=== PATIENT | female | born 1940 | race Caucasian/White ===

== ENCOUNTER 2016-06-25 11:39 | Observation (INO) | payer OTHER ==
[~2016-06-25] VITALS: Ht 160 cm; Wt 75.7 kg
[~2016-06-25 11:39] MED LIST: ATEN25TA PO; CALC1TAB30 PO; CHOL100025 CHEW; FISH1000 PO; LACTATED RINGER'S 1000 ML INJ 1,000 ML IV ONE; LIDOCAINE 1%/EPINEPHrine 1:100,000 SOLN 30 ML VIAL ONE; LISI-515 PO; MAGN1TAB14 PO; ONDANSETRON HCL 4 MG/2 ML VIAL IV PUSH ONE; PRAV20TA2 PO; PROPOFOL 200 MG/20 ML AMP IV ONE; TRAM50TA PO; ePHEDrine/NS 25 MG/5 ML SYR IV ONE
[2016-06-25] MEDS ORDERED: INSULIN HUMAN REGULAR 1,000 UNITS/10 ML VIAL SQ PRN (12:30)
[2016-06-25] MEDS ORDERED: LACTATED RINGER'S 1000 ML IV SCH (12:30)
[2016-06-25] MEDS ORDERED: METOPROLOL TARTRATE 25 MG TAB PO PRN (12:30)
[2016-06-25] MEDS: SODIUM CHLORID 0.9% 500 ML IV SCH (12:30)
[2016-06-25 12:43] VITALS: BP 176/58; PULSE 64; RESP 18; TEMP 98; O2SAT 98
[2016-06-25] MEDS ORDERED: VANCOMYCIN HCL 1000 MG VIAL ONE (13:01)
[2016-06-25] MEDS ORDERED: MICROFIBRILLAR COLLAGEN HEMOSTAT 70 X 35 MM BANDAGE ONE (13:01)
[2016-06-25] MEDS ORDERED: THROMBIN (TOPICAL) 5,000 UNIT VIAL ONE (13:02)
[2016-06-25] MEDS ORDERED: GENTAMICIN SULFATE 80 MG/2 ML VIAL ONE (13:02)
[2016-06-25] MEDS ORDERED: SODIUM CHLOR 0.9% 250 ML INJ 250 ML ONE (13:02)
[2016-06-25] MEDS ORDERED: GELFOAM SIZE 100 ONE (13:02)
[2016-06-25] MEDS ORDERED: ceFAZolin 2 GM PREMIX 50 ML ONE (13:02)
[2016-06-25 13:09] LABS: APTT (PATIENT) 25.1 SEC (24.3-30.1); PROTHROMBIN TIME - PATIENT 11.5 SEC (9.8-11.6)
[2016-06-25] MEDS ORDERED: MIDAZOLAM HCL 2 MG/2 ML VIAL ONE (14:17)
[2016-06-25] MEDS ORDERED: ARTIFICIAL TEARS OPTH OINT 3.5 APPLIC/3.5 GM TUBO ONE (14:17)
[2016-06-25] MEDS ORDERED: fentaNYL CITRATE 250 MCG/5 ML AMP ONE (14:17)
[2016-06-25] MEDS ORDERED: ACETAMINOPHEN 1000 MG/100 ML VIAL IV ONE (14:17)
[2016-06-25] MEDS ORDERED: SODIUM CHLORIDE 0.9% FLUSH 5 ML FLUSH IVF PRN ×2 (16:30→17:30)
[2016-06-25] MEDS ORDERED: MENTHOL LOZENGE SUCK-ON PRN ×2 (16:30→17:30)
[2016-06-25] MEDS ORDERED: PANTOPRAZOLE SOD 40 MG DELAYED RELEASE TAB PO SCH (16:30)
[2016-06-25] MEDS ORDERED: CYCLOBENZAPRINE HCL 10 MG TAB PO PRN ×2 (16:30→17:30)
[2016-06-25] MEDS ORDERED: ACETAMINOPHEN 325 MG TAB PO PRN ×2 (16:30→17:30)
[2016-06-25] MEDS ORDERED: MORPHINE SULFATE 4 MG/ML INJ IV PUSH PRN ×4 (16:30→17:30)
[2016-06-25] MEDS ORDERED: BISACODYL 10 MG SUPP PR PRN ×2 (16:30→17:30)
[2016-06-25] MEDS ORDERED: ACETAMINOPHEN/HYDROcodone 325 MG/10 MG TAB PO PRN ×3 (16:30→17:30)
[2016-06-25] MEDS ORDERED: ONDANSETRON HCL 4 MG/2 ML VIAL IV PRN ×2 (16:30→17:30)
[2016-06-25] MEDS ORDERED: NS + KCL 20 MEQ INJ 1,000 ML IV SCH (17:00)
--- NOTE | 2016-06-25 17:28 | PD.OP ---
Operative Report Date of Surgery: Jun 25, 2016 Preoperative Diagnosis: Cervical spinal stenosis Postoperative Diagnosis: Cervical spinal stenosis Procedure: C4-5, C5-6 anterior cervical discectomy, interbody arthodhesis using PEEK cage filled with autologous bone graft, Simplicity plate and screws. Anesthesia: general Surgeon: Contreras Costa Manager Integrity(s): judy quintero Operation and Findings: INDICATIONS FOR THE PROCEDURE Ms Howe is a 76 year-old female who presented with intractable neck pain and clinical evidence of C5 and C6 upper extremity radiculopathy. She was found to have significant spondylosis with stenosis. She has failed maximum nonsurgical management including multiple modalities of conservative treatment as well as pain management interventions by an interventional pain specialist. A surgical decompression and arthrodhesis were indicated. The [id number] details of the procedure, indications, alternatives, risks and potential complications were fully discussed with the patient. The patient fully understood. All The questions were answered. No guarantees were given. The patient voiced requesting the procedure and provided informed consents. The patient was offered the alternative of delaying the procedure and continuing with nonsurgical management. DETAILS OF THE SURGICAL PROCEDURE After the induction of general anesthesia, endotracheal intubation was performed. A Pisano catheter, bilateral DOROTHEA hose, and sequential compression devices were placed and kept throughout the procedure. Placement of electrodes for neurophysiological monitoring of the somatosensorial evoked potentials. motor evoked potentials, and EMG as well as laryngeal nerve monitoring was achieved. The patient was positioned supine on a Wu table with the head over a gel doughnut. All pressure points were carefully padded with eggcrate mattress. The eyes were tapped shut after ointment was applied by the anesthesiologist to prevent corneal abrasion. A Angie hugger was placed over the exposed lower body to maintain control of the core body temperature. The electrophysiological team placed the needles and electrodes in their proper location and baseline SSEP's and motor evoked potentials were registered prior and after positioning and endotracheal intubation. The anterior cervical region was prepped and draped in the usual sterile fashion. A localizing x-ray was performed with a C-arm. The surgical procedure was performed in several steps as follow: SURGICAL APPROACH A skin incision was made along the medial cervical crease with a #10 blade. The dissection was carried out through the platysma exposing the sternocleidomastoid muscle. The cervical spine was approached following the fascial layers of the neck just medial to the anterior border of the sternocleidomastoid and carotid sheath by a combination of sharp and dull dissection. The omohyoid muscle was identified and carefully dissected laterally and the deep cervical fascia was carefully opened. The longus colli muscles were retracted to each side of the midline. A marker was placed at the disc space C5-6 and a cross-table lateral x-ray performed with a C-arm. SURGICAL DECOMPRESSION In order to decompress the anterior surface of the spinal cord it was necessary to preform a microsurgical resection of the disk at C4-5 and C5-6. At this point in the procedure the operating microscope was draped in the usual sterile fashion and brought to the field. The rest of the surgical procedure was performed using microdissection technique with the exception of the closure. Under the operative microscopic, a self-retaining retractor was placed underneath the longus colli muscle. Anterior osteophite spurs werte carefully removed with the Leksell. The annulus at C4-5 and C5-6 were incised with a #15 blade and microdiscectomy was then carefully carried out using angled curets and pituitary forceps. There were osteophitic/disk complexes mass effect and compression of the dural sac and nerve roots. The posterior longitudinal ligament was then elevated with an angled curet and incised with a 15 bladed knife. A careful resection of the posterior longitudinal ligament was carried out using a thin footplate 2 mm Kerrison. A nerve hook was used to assess the epidural space behing the vertebral bodies C5 and C6 in search for residual disk fragments. The margins of the posterior endplates at C4-5 and C5-6 were carefully drilled and undercut with a TPS drill under high magnification. The decompression was then carried out laterally, and a bilateral foraminotomy was performed with a 2mm thin foot Kerrison. Then the vertebral bodies above and below the disk space were undercut using a 2 mm thin foot Kerrison. The epidural space was the systematically assessed with a nerve hook in search for disk fragments or scar tissue. An excellent decompression was achieved in both , the dural sac and bilateral exiting nerve roots. The incision was then irrigated with a large amount of antibiotic solution INTERBODY ARTHRODHESIS In order to avoid collapse of the disk space which would result in bilateral foraminal stenosis, and to increase the chances of a successful fusion, it was necessary to place an interbody cage filled with autologous bone. At this point of the procedure, the superior and inferior endplates were then evenly decorticated with a TPS drill. The use of a drill in combination with a curette allowed me to systematically remove the cartilaginous endplates, exposing healthy bone for the interbody arthrodesis. Fourteen millimeters distraction pins were then placed at the vertebral bodies adjacent to the disk space, and gentle distraction was applied. The size of the interbody cage was then assessed using different size spacers, and a rasp was used to ensure no residual cartilage. A PEEK cage of the appropriate size was selected, and the interbody arthrodesis was then preformed by carefully impacting a PEEK cage filled with autologous bone graft to the disc spaces C4-5 and C5-6. An excellent position of the cage was achieved. This was was confirmed anatomically by feeling the space posterior to the implant and distance to the anterior surface of the dural sac. Radiological confirmation of the position was performed with a cross lateral xray performed with the C-arm. INTERNAL INSTRUMENTAL FIXATION Once that the interbody device was in an appropriate position, it was necessary to stabilize the spine with anterior instrumentation. Anterior instrumentation has demonstrated to increase the rate of fusion, acelerate the patient's recovery, and decrease the rate of failed interbody grafts. At this point of the procedure, the distance between the vertebral bodies was carefully measures, and a Simplicity plate was brought to the field and presented in front of the vertebral bodies C4 C5 and C6. Electrical Software Engineer holes were then drilled using the TPS drill, and the plate was then secured to the spine using self-drilling, self-tapping screws. Initially, the inferior right screw was inserted, followed by placement of the contralateral upper screw. The remanding screws were sequentially placed in a contra-lateral fashion. A proper purchase was achieved with all screws and the position of the cage, plate and screws, and alignment of the spine was assessed anatomically by direct visualization, and radiologically by performing a cross lateral xray of the cervical spine with the C-arm. CLOSURE The incision was irrigated with several liters of antibiotic solution. Hemostasis was achieved with a bipolar. The screws were locked to prevent backing out. A 7 mm Wu-Trimble drain was left in the prevertebral space and externalized through a separate stab incision. The incision was then closed in layers. 3-0 Vicryl with interrupted sutures was used to close the platysma and subcutaneous tissue. The skin was closed with 4-0 running subcuticular Vicryl and glue was applied to the skin. The drain was secured with a 3-0 nylon. At the end of the procedure the sponge, needle and instrument counts were all correct. The estimated blood loss was less than 50 cc. No blood transfusion was given. No intraoperative complications occurred. The patient received prophylactic antibiotics. The patient was then extubated and transferred to the recovery room in stable condition. Contreras Costa MD Jun 25, 2016 17:28
[2016-06-25] MEDS ORDERED: traMADol HCL 50 MG TAB PO PRN (17:30)
[2016-06-25] MEDS ORDERED: DO NOT ADM ANY ANTICOAGULANT DRUGS XX PRN (17:50)
[2016-06-25] MEDS ORDERED: DEXAMETHASONE SOD PHOS 4 MG/ML VIAL IV SCH ×2 (18:00)
[2016-06-25] MEDS ORDERED: *morphine SULFATE 8 MG/ML PERIprocedure ONLY ONE (18:11)
--- NOTE | 2016-06-25 18:13 | RADRPT ---
EXAM DATE/TIME: 06/25/2016 14:49 [facility] COMPARISON: No previous studies available for comparison. INDICATIONS : Fusion C4,C5 and C5,C6 with screws and plate placement. MEDICAL HISTORY : None. SURGICAL HISTORY : None. ENCOUNTER: Initial ACUITY: 1 day PAIN SCORE: Non-responsive. LOCATION: Cervical spine. FINDINGS: Anterior and lateral views in the operating room show discectomy and fusion procedure with interbody and anterior instrumentation at C4/C5 and C5/C6. Alignment is normal. No acute complication demonstra sarabjit. CONCLUSION: Expected radiographic appearance discectomy and fusion procedure with interbody and anterior instrume ntation at C4/C5 and C5/C6. Pravin Gardner MD on June 25, 2016 at 18:11 Board Certified Radiologist. This report was verified electronically.
[2016-06-25] MEDS ORDERED: HYDR-3583 PO (18:16)
[2016-06-25] MEDS: NS + KCL 20 MEQ INJ 1,000 ML IV SCH (18:21)
[2016-06-25 20:31] VITALS: BP 133/63; PULSE 84; RESP 19; TEMP 97.1; O2SAT 98
[2016-06-25] MEDS ORDERED: DOCUSATE SODIUM 100 MG CAP PO SCH (21:00)
[2016-06-25] MEDS ORDERED: SODIUM CHLORIDE 0.9% FLUSH 5 ML FLUSH IVF SCH (21:00)
[2016-06-25] MEDS ORDERED: PRAVASTATIN SOD 20 MG TAB PO SCH (21:00)
[2016-06-25] MEDS: SODIUM CHLORIDE 0.9% FLUSH 5 ML FLUSH IVF SCH (22:07)
[2016-06-25] MEDS: DOCUSATE SODIUM 100 MG CAP PO SCH (22:07)
[2016-06-25] MEDS: DEXAMETHASONE SOD PHOS 4 MG/ML VIAL IV SCH (22:08)
[2016-06-25] MEDS ORDERED: ceFAZolin 2 GM PREMIX 50 ML IV SCH (23:00)
[2016-06-25] MEDS: ceFAZolin 2 GM PREMIX 50 ML IV SCH (23:00)
[2016-06-26 00:02] VITALS: BP 162/70; PULSE 86; RESP 20; TEMP 97.6; O2SAT 97
[2016-06-26] MEDS: NS + KCL 20 MEQ INJ 1,000 ML IV SCH ×3 (00:49→06:22)
[2016-06-26] MEDS: DEXAMETHASONE SOD PHOS 4 MG/ML VIAL IV SCH ×3 (02:14→12:28)
[2016-06-26] MEDS: ACETAMINOPHEN/HYDROcodone 325 MG/10 MG TAB PO PRN ×3 (02:15→12:23)
[2016-06-26 04:01] VITALS: BP 132/60; PULSE 76; RESP 20; TEMP 96.9; O2SAT 98
[2016-06-26] MEDS: SODIUM CHLORID 0.9% 500 ML IV SCH (05:10)
[2016-06-26] MEDS: ceFAZolin 2 GM PREMIX 50 ML IV SCH (06:22)
[2016-06-26 08:00] VITALS: BP 185/72; PULSE 82; RESP 20; TEMP 97.2; O2SAT 96
[2016-06-26] MEDS: DOCUSATE SODIUM 100 MG CAP PO SCH (08:12)
[2016-06-26] MEDS: SODIUM CHLORIDE 0.9% FLUSH 5 ML FLUSH IVF SCH (08:13)
[2016-06-26] MEDS ORDERED: ATENOLOL 25 MG TAB PO SCH (09:00)
[2016-06-26] MEDS ORDERED: LISINOPRIL 20 MG TAB PO SCH (09:00)
[2016-06-26] MEDS ORDERED: NON-FORMULARY DRUG (Calcium Carbonate-Cholecalciferol (Calcium 600 + D) 1 TAB) PO SCH (09:00)
[2016-06-26] MEDS ORDERED: PANTOPRAZOLE SOD 40 MG DELAYED RELEASE TAB PO SCH (09:00)
[2016-06-26] MEDS ORDERED: MAGNESIUM OXIDE 400 MG TAB PO SCH (09:00)
[2016-06-26] MEDS ORDERED: NON-FORMULARY DRUG (Omega-3 Fatty Acids (Fish Oil) 1,000 MG) PO SCH (09:00)
[2016-06-26] MEDS ORDERED: MAGNESIUM 400 MG PO SCH (09:00)
[2016-06-26] MEDS ORDERED: CALCIUM/VITAMIN D 250 MG/125 U TAB PO SCH (09:00)
--- NOTE | 2016-06-26 10:09 | HHI.DCPOC ---
Discharge Care Plan Diagnosis: (1) Status post cervical arthrodesis Goals to Promote Your Health * To prevent worsening of your condition and complications * To maintain your health at the optimal level Directions to Meet Your Goals Take your medications as prescribed Follow your dietary instruction Follow activity as directed Keep your appointments as scheduled Take your immunizations and boosters as scheduled If your symptoms worsen call your PCP, if no PCP go to Urgent Care Center or Emergency Room Smoking is Dangerous to Your Health. Avoid second hand smoke Call the 24-hour hour crisis hotline for domestic abuse at Supriya Gomez Jun 26, 2016 10:09
--- NOTE | 2016-06-26 10:12 | HHI.DS ---
Discharge Summary Admission Date Jun 25, 2016 at 16:19 Discharge Date: Jun 26, 2016 Admitting Diagnosis s/p ACDF (1) Status post cervical arthrodesis ICD Code: Z98.1 Brief History Ms Howe is a 76 year-old female who presented with intractable neck pain and clinical evidence of C5 and C6 upper extremity radiculopathy. She was found to have significant spondylosis with stenosis. She has failed maximum nonsurgical management including multiple modalities of conservative treatment as well as pain management interventions by an interventional pain specialist. A surgical decompression and arthrodesis were indicated. Imaging Last Impressions Cervical Spine X-Ray 06/25/16 0000 Signed Impressions: Service Date/Time: Saturday, June 25, 2016 14:49 - CONCLUSION: Expected radiographic appearance discectomy and fusion procedure with interbody and anterior instrumentation at C4/C5 and C5/C6. Pravin Gardner MD PE at Discharge Ms. Howe is alert, in no apparent distress. Speech is fluent. Mentation intact. Incision is clean and dry, dressing in place. Cranial nerve examination: pupils to be equal, round and reactive to light. Extra-ocular movements are intact. Facial motor are normal and symmetrical. Gross hearing appears intact. Neck is immobilized by a Cassia J collar. Muscle strength is 5/5 to both deltoid, biceps, triceps, and rubber cutter in the upper extremities. 5/5 to both iliopsoas, quadriceps, hamstrings, plantarflexion and dorsiflexion in lower extremities. Sensory examination is intact to light touch in both the upper and lower extremities. Hospital Course Ms. Howe underwent a C4-5, C5-6 anterior cervical discectomy, interbody arthrodesis using PEEK cage filled with autologous bone graft, Simplicity plate and screws on Jun 25, 2016. Her surgery went well without complications. She reports her preop symptoms are improving. Her surgical pain is controlled. She denies chest pain, difficulty breathing, shortness of breath. Wound care and activity restrictions as well as signs and symptoms to watch for were discussed. Her MARTIN drain removed. She had episode of hypertension without reports of chest pain, difficulty breathing, or mental status changes, bp improved following clonidine and she was discharged home with recommendations to follow up with her PCP for hypertension. Pt Condition on Discharge: Stable Discharge Disposition: Discharge Home Discharge Instructions DIET: Follow Instructions for: Soft Diet ADDITIONAL Diet Instructions: advance as tolerated ACTIVITIES You can perform: Weight Bearing As Kofi ADDITIONAL Activity Instructio: Avoid strenuous activities, heavy lifting, overhead activities, repetitive bending, twisting, pushing, pulling or any activities which might result in stress over the spine. Avoid situtation that will put at risk for falls. Use assistive device as needed for walking. Wear cervical collar at all times, may remove only with meals. Follow up Referrals: PCP Follow-up - 2-3 Days New Medications: Hydrocodone-Acetaminophen (Hydrocodone-Acetaminophen) 10-325 mg Tab 1 TAB PO Q8HR PRN PAIN SCALE 1 TO 10 #90 Ref 0 TAB Continued Medications: Atenolol (Atenolol) 25 Mg Tab 10 MG PO DAILY Blood Pressure Management #30 Ref 0 TAB Calcium Carbonate-Cholecalciferol (Calcium 600 + D) 600-200 Mg-Unit Tab 1 TAB PO DAILY TAB Lisinopril (Lisinopril) 20 Mg Tab 20 MG PO DAILY #30 Ref 0 TAB Magnesium (Magnesium) 400 Mg Tab 400 MG PO DAILY Nutritional Supplement Ref 0 TAB United-3 Fatty Acids (Fish Oil) 1,000 Mg Cap 1000 MG PO DAILY Pravastatin (Pravastatin) 20 Mg Tab 20 MG PO HS Cholesterol Management #30 Ref 0 TAB Tramadol (Tramadol) 50 Mg Tab 50 MG PO Q4H PRN PAIN Ref 0 TAB Supriya Gomez Jun 26, 2016 10:12
[2016-06-26 11:51] VITALS: BP 190/74; PULSE 84; RESP 20; TEMP 97.4; O2SAT 96
[2016-06-26] MEDS ORDERED: cloNIDine HCL 0.1 MG TAB PO/NG PRN (12:15)
[2016-06-26 14:00] VITALS: BP 166/70
[2016-06-26 14:35] VITALS: BP 152/64; PULSE 78; RESP 20; TEMP 97.4; O2SAT 98
--- NOTE | 2016-06-26 22:34 | EKG ---
Date Performed: 06/25/2016 Time Performed: 13:23:05 PTAGE: 76 years EKG: Sinus rhythm WITH MARKED SINUS ARRHYTHMIA PACS BORDERLINE ECG NO PREVIOUS TRACING DOCTOR: Kate Banda Interpretating Date/Time 06/26/2016 22:32:27
[2016-07-16] MEDS ORDERED: NEUR100C PO (11:38)
[2016-09-05] MEDS ORDERED: NEUR100C PO (12:29)
== END 2016-06-26 15:49 | disposition home health service (06) ==
LOC: HSDC 11:39 → HSDI 16:19 → N06A 18:48
PROVIDERS: ADMIT Neurological Surgery; ATTEND Neurological Surgery
DX: M48.02 Spinal stenosis, cervical region (principal); M50.021 Cervical disc disorder at C4-C5 level with myelopathy; M50.022 Cervical disc disorder at C5-C6 level with myelopathy; M47.9 Spondylosis, unspecified; M54.12 Radiculopathy, cervical region; I49.9 Cardiac arrhythmia, unspecified
CPT/HCPCS: 00600; 20936; 22551; 22552; 22845; 22854; 72040; 76000; 85610; 85730; 93005; 94150; 97162; C1713; G0378; G8987; G8988; J0131; J0690; J1100; J1580; J2250; J2270; J2405; J3010; J3370; J3480; J7050; J7120; L0150; L0172

== ENCOUNTER → 2017-02-24 | Outpatient (CLI) | payer OTHER ==
[~2017-02-24] MED LIST changes: +CALC1TAB87 PO; -CHOL100025 CHEW; +HYDR-3583 PO; -LACTATED RINGER'S 1000 ML INJ 1,000 ML IV ONE; -LIDOCAINE 1%/EPINEPHrine 1:100,000 SOLN 30 ML VIAL ONE; -MAGN1TAB14 PO; +MAGN400T3 PO; +MAPA500T PO; +NEUR100C PO; -ONDANSETRON HCL 4 MG/2 ML VIAL IV PUSH ONE; -PROPOFOL 200 MG/20 ML AMP IV ONE; +WALKER/ADULT/FO1 MIS; +XARE10TA PO; -ePHEDrine/NS 25 MG/5 ML SYR IV ONE
== END ==
LOC: CPRE 08:37
PROVIDERS: ATTEND Orthopaedic Surgery Orthopaedic Trauma
DX: Z00.00 Encounter for general adult medical examination without abnormal findings (principal)

== ENCOUNTER 2017-03-06 05:12 | Inpatient (IN) | payer OTHER, MEDICARE ==
[~2017-03-06] VITALS: Ht 160 cm; Wt 78.4 kg
[~2017-03-06 05:12] MED LIST changes: -CALC1TAB30 PO; -HYDR-3583 PO; +MAGN1TAB14 PO; -MAGN400T3 PO; -NEUR100C PO; -TRAM50TA PO; -WALKER/ADULT/FO1 MIS; -XARE10TA PO
[2017-03-06] MEDS ORDERED: CHLORHEXIDINE GLUCONATE 4% SOLN 120 ML BTL TOPICAL SCH (05:45)
[2017-03-06] MEDS ORDERED: ceFAZolin 2 GM PREMIX 50 ML IV SCH (05:45)
[2017-03-06] MEDS ORDERED: INSULIN HUMAN REGULAR 1,000 UNITS/10 ML VIAL SQ PRN (06:00)
[2017-03-06] MEDS ORDERED: LACTATED RINGER'S 1000 ML IV PRN (06:00)
[2017-03-06] MEDS ORDERED: METOPROLOL TARTRATE 25 MG TAB PO PRN (06:00)
[2017-03-06] MEDS ORDERED: POVIDONE IODINE 5% (ANTISEPSIS KIT) 4 APPLICATIONS EACH NARE PRN (06:00)
[2017-03-06] MEDS ORDERED: CHLORHEXIDINE GLUCONATE 2 % 1 PACK (2 CLOTHS) TOPICAL PRN (06:00)
[2017-03-06] MEDS ORDERED: SODIUM CHLORID 0.9% 500 ML IV PRN (06:00)
[2017-03-06] MEDS: VANCOMYCIN 1000 MG/NS 250 ML (for <70 kg) IV SCH ×4 (06:20→08:08)
[2017-03-06] MEDS ORDERED: ATEN25TA PO (06:24)
[2017-03-06] MEDS ORDERED: GENTAMICIN SULFATE 80 MG/2 ML VIAL ONE (07:02)
[2017-03-06] MEDS ORDERED: TRANEXAMIC ACID IV SCH (07:30)
[2017-03-06] MEDS ORDERED: EXPAREL PERI-ARTICULAR INJECTION (TOTAL VOL. 60 ML) P-ARTICULR SCH ×2 (07:30)
[2017-03-06] MEDS ORDERED: SODIUM CHLORIDE 0.9% IV SCH (07:30)
[2017-03-06] MEDS ORDERED: HYDROmorphone HCL PF 2 MG/ML VIAL ONE (08:23)
[2017-03-06] MEDS ORDERED: HYDR-3583 PO (09:22)
[2017-03-06] MEDS ORDERED: WALKER/ADULT/FO1 MIS (09:22)
[2017-03-06] MEDS ORDERED: XARE10TA PO (09:22)
--- NOTE | 2017-03-06 09:23 | HHI.FF ---
Face to Face Verification Diagnosis: (1) S/P total hip arthroplasty Physical Therapy Gait training Hip: Total hip, Protocol: Left, Progress to weight bearing Nursing Dressing Changes: Daily dressing change, Coverderm/Primapore (begin adding xeroform on POD 10) I have seen patient Iveth Howe on 03/06/17. My clinical findings support the need for the requested home health care services because: Ltd mobility - disease progression I certify that my clinical findings support that this patient is homebound because: Post-op weakness Leoncio Peterson Mar 06, 2017 09:23
--- NOTE | 2017-03-06 09:23 | PD.OP ---
cc: Gabino Conn MD Operative Report Date of Surgery: Mar 06, 2017 Preoperative Diagnosis: Severe left hip osteoarthritis Postoperative Diagnosis: Procedure: Left total hip arthroplasty via anterior approach Anesthesia: Gen. Surgeon: Gabino Conn Railroad Car Cleaner(s): JORDYN Richter PA-C The surgical procedure was assisted by my physician patient clerical assistant. My P.A. presence was necessary throughout this case for the manipulation and positioning of the surgical extremity. My P.A. was assisting me throughout the duration of this procedure. The skill set of a physician patient clerical assistant was medically necessary to complete this procedure. During the surgical case the surgical endoscopist was working at the back table and the physician patient clerical assistant was directly assisting me. Operation and Findings: PLAN OF ACTIVITY Weight bear as tolerated. DRAINS: 7-mm MARTIN drain. IMPLANTS USED DePuy Corail size 12 collared stem with a size 50 [place] Gription cup, 50/32 Altrx poly liner, and a [+1] metal head. DETAILS OF PROCEDURE: This patient has a long history of hip pain. Patient was found to have severe osteoarthritis. The patient had radiographic evidence of joint space narrowing with [id number] arthritis and osteophytes around the acetabulum as well as the femoral head. There was also some cystic changes. The patient failed conservative treatment with pain medications, anti-inflammatories, physical therapy, assistive devices including a cane, as well as therapeutic injection of the hip. Patient's hip arthritis was limiting his ability to ambulate and perform activities of daily living. The patient wished to proceed with surgery and informed consent was obtained. Operative site was marked. I discussed both posterior approach and anterior approach with the patient and decision was made for anterior approach. Patient was brought to OR and placed on OR table. IV sedation and general anesthesia was administered by anesthesiologist. Patient positioned on a Tyra table and was given IV antibiotics. Time-out procedure was performed. The hip and thigh were prepped with alcohol followed by Hibiclens. The thigh was draped in the usual sterile fashion. Clean Air Suite was used for this procedure. The procedure began with a 5-inch incision over the anterolateral thigh. Subcutaneous tissue was dissected with Bovie. The fascia over the tensa fasciae latae was incised. Care was taken to avoid injury to the lateral femoral cutaneous nerve. The tensor muscle was retracted laterally. Sartorius was retracted medially. Retractors were now placed. The reflected head of the rectus is now elevated. A capsulotomy was performed over the anterior head capsule. Sutures were placed to help retract the capsule. At this point the femoral head and neck were identified. With soft tissue protected, oscillating saw was used to make a cut through the femoral neck, the femoral head was now removed. At this point attention was turned to preparation of the acetabulum. The labrum was excised. The acetabulum was sequentially reamed up to size [50]. A [place] cup was now placed. Fluoroscopy was used to aid in identification of appropriate version. Cup was fully impacted and found to have excellent fit. Hole eliminator was now placed. The liner was now impacted into the cup. At this point the hip was externally rotated. A hook was placed around the proximal femur. The capsule was released off the lateral and medial femur. The hip was now extended and adducted. Retractors were placed around the proximal femur to allow for exposure. A box osteotome was used to remove the lateral cortex of the femoral neck. A broach was used to help lateralize the prosthesis. Canal finder was used to create a path down the canal. Next, the canal was sequentially broached up to size [12]. This was found to be an excellent fit. Calcar planer was placed. A standard head was placed, and the hip was reduced. The hip was found to have excellent stability with good range of motion. The leg lengths were measured under fluoroscopy and found to be equal compared to preoperatively. Trial broach was removed. The Corail stem was opened. Stem was fully impacted into the proximal femur in appropriate version. The femoral head was placed. The hip was again reduced. Fluoroscopy confirmed excellent alignment of prosthesis. The wound was thoroughly irrigated and capsule was closed with #1 Vicryl. The fascia over the tensor fasciae muscle was closed with #1 Vicryl, subcutaneous tissue was closed with 3-0 Vicryl and the skin was closed with shaan and Dermabond skin closure. The capsule layers, muscle, and subcutaneous tissue were injected with a mixture of saline and bupivicaine. Dressings were applied. The patient was transferred to Recovery Room in stable condition. Gabino Conn MD Mar 06, 2017 09:23
--- NOTE | 2017-03-06 09:23 | PD.OP ---
cc: Gabino Conn MD Operative Report Date of Surgery: Mar 06, 2017 Preoperative Diagnosis: Severe left hip osteoarthritis Postoperative Diagnosis: Procedure: Left total hip arthroplasty via anterior approach Anesthesia: Gen. Surgeon: Gabino Conn Operations And Maintenance Technican(s): JORDYN Richter PA-C The surgical procedure was assisted by my physician therapeutic assistant. My P.A. presence was necessary throughout this case for the manipulation and positioning of the surgical extremity. My P.A. was assisting me throughout the duration of this procedure. The skill set of a physician therapeutic assistant was medically necessary to complete this procedure. During the surgical case the surgical pathologist was working at the back table and the physician therapeutic assistant was directly assisting me. Operation and Findings: PLAN OF ACTIVITY Weight bear as tolerated. DRAINS: 7-mm MARTIN drain. IMPLANTS USED DePuy Corail size 12 collared stem with a size 50 [place] Gription cup, 50/32 Altrx poly liner, and a [+1] metal head. DETAILS OF PROCEDURE: This patient has a long history of hip pain. Patient was found to have severe osteoarthritis. The patient had radiographic evidence of joint space narrowing with [id number] arthritis and osteophytes around the acetabulum as well as the femoral head. There was also some cystic changes. The patient failed conservative treatment with pain medications, anti-inflammatories, physical therapy, assistive devices including a cane, as well as therapeutic injection of the hip. Patient's hip arthritis was limiting his ability to ambulate and perform activities of daily living. The patient wished to proceed with surgery and informed consent was obtained. Operative site was marked. I discussed both posterior approach and anterior approach with the patient and decision was made for anterior approach. Patient was brought to OR and placed on OR table. IV sedation and general anesthesia was administered by anesthesiologist. Patient positioned on a Tyra table and was given IV antibiotics. Time-out procedure was performed. The hip and thigh were prepped with alcohol followed by Hibiclens. The thigh was draped in the usual sterile fashion. Clean Air Suite was used for this procedure. The procedure began with a 5-inch incision over the anterolateral thigh. Subcutaneous tissue was dissected with Bovie. The fascia over the tensa fasciae latae was incised. Care was taken to avoid injury to the lateral femoral cutaneous nerve. The tensor muscle was retracted laterally. Sartorius was retracted medially. Retractors were now placed. The reflected head of the rectus is now elevated. A capsulotomy was performed over the anterior head capsule. Sutures were placed to help retract the capsule. At this point the femoral head and neck were identified. With soft tissue protected, oscillating saw was used to make a cut through the femoral neck, the femoral head was now removed. At this point attention was turned to preparation of the acetabulum. The labrum was excised. The acetabulum was sequentially reamed up to size [50]. A [place] cup was now placed. Fluoroscopy was used to aid in identification of appropriate version. Cup was fully impacted and found to have excellent fit. Hole eliminator was now placed. The liner was now impacted into the cup. At this point the hip was externally rotated. A hook was placed around the proximal femur. The capsule was released off the lateral and medial femur. The hip was now extended and adducted. Retractors were placed around the proximal femur to allow for exposure. A box osteotome was used to remove the lateral cortex of the femoral neck. A broach was used to help lateralize the prosthesis. Canal finder was used to create a path down the canal. Next, the canal was sequentially broached up to size [12]. This was found to be an excellent fit. Calcar planer was placed. A standard head was placed, and the hip was reduced. The hip was found to have excellent stability with good range of motion. The leg lengths were measured under fluoroscopy and found to be equal compared to preoperatively. Trial broach was removed. The Corail stem was opened. Stem was fully impacted into the proximal femur in appropriate version. The femoral head was placed. The hip was again reduced. Fluoroscopy confirmed excellent alignment of prosthesis. The wound was thoroughly irrigated and capsule was closed with #1 Vicryl. The fascia over the tensor fasciae muscle was closed with #1 Vicryl, subcutaneous tissue was closed with 3-0 Vicryl and the skin was closed with shaan and Dermabond skin closure. The capsule layers, muscle, and subcutaneous tissue were injected with a mixture of saline and bupivicaine. Dressings were applied. The patient was transferred to Recovery Room in stable condition. Gabino Conn MD Mar 06, 2017 09:23
--- NOTE | 2017-03-06 09:23 | PD.OP ---
cc: Gabino Conn MD Operative Report Date of Surgery: Mar 06, 2017 Preoperative Diagnosis: Severe left hip osteoarthritis Postoperative Diagnosis: Procedure: Left total hip arthroplasty via anterior approach Anesthesia: Gen. Surgeon: Gabino Conn Bounty Hunter(s): JORDYN Richter PA-C The surgical procedure was assisted by my physician bookkeeping assistant. My P.A. presence was necessary throughout this case for the manipulation and positioning of the surgical extremity. My P.A. was assisting me throughout the duration of this procedure. The skill set of a physician bookkeeping assistant was medically necessary to complete this procedure. During the surgical case the surgical dressing maker was working at the back table and the physician bookkeeping assistant was directly assisting me. Operation and Findings: PLAN OF ACTIVITY Weight bear as tolerated. DRAINS: 7-mm MARTIN drain. IMPLANTS USED DePuy Corail size 12 collared stem with a size 50 [place] Gription cup, 50/32 Altrx poly liner, and a [+1] metal head. DETAILS OF PROCEDURE: This patient has a long history of hip pain. Patient was found to have severe osteoarthritis. The patient had radiographic evidence of joint space narrowing with [id number] arthritis and osteophytes around the acetabulum as well as the femoral head. There was also some cystic changes. The patient failed conservative treatment with pain medications, anti-inflammatories, physical therapy, assistive devices including a cane, as well as therapeutic injection of the hip. Patient's hip arthritis was limiting his ability to ambulate and perform activities of daily living. The patient wished to proceed with surgery and informed consent was obtained. Operative site was marked. I discussed both posterior approach and anterior approach with the patient and decision was made for anterior approach. Patient was brought to OR and placed on OR table. IV sedation and general anesthesia was administered by anesthesiologist. Patient positioned on a Tyra table and was given IV antibiotics. Time-out procedure was performed. The hip and thigh were prepped with alcohol followed by Hibiclens. The thigh was draped in the usual sterile fashion. Clean Air Suite was used for this procedure. The procedure began with a 5-inch incision over the anterolateral thigh. Subcutaneous tissue was dissected with Bovie. The fascia over the tensa fasciae latae was incised. Care was taken to avoid injury to the lateral femoral cutaneous nerve. The tensor muscle was retracted laterally. Sartorius was retracted medially. Retractors were now placed. The reflected head of the rectus is now elevated. A capsulotomy was performed over the anterior head capsule. Sutures were placed to help retract the capsule. At this point the femoral head and neck were identified. With soft tissue protected, oscillating saw was used to make a cut through the femoral neck, the femoral head was now removed. At this point attention was turned to preparation of the acetabulum. The labrum was excised. The acetabulum was sequentially reamed up to size [50]. A Bryan cup was now placed. Fluoroscopy was used to aid in identification of appropriate version. Cup was fully impacted and found to have excellent fit. Hole eliminator was now placed. The liner was now impacted into the cup. At this point the hip was externally rotated. A hook was placed around the proximal femur. The capsule was released off the lateral and medial femur. The hip was now extended and adducted. Retractors were placed around the proximal femur to allow for exposure. A box osteotome was used to remove the lateral cortex of the femoral neck. A broach was used to help lateralize the prosthesis. Canal finder was used to create a path down the canal. Next, the canal was sequentially broached up to size [12]. This was found to be an excellent fit. Calcar planer was placed. A standard head was placed, and the hip was reduced. The hip was found to have excellent stability with good range of motion. The leg lengths were measured under fluoroscopy and found to be equal compared to preoperatively. Trial broach was removed. The Corail stem was opened. Stem was fully impacted into the proximal femur in appropriate version. The femoral head was placed. The hip was again reduced. Fluoroscopy confirmed excellent alignment of prosthesis. The wound was thoroughly irrigated and capsule was closed with #1 Vicryl. The fascia over the tensor fasciae muscle was closed with #1 Vicryl, subcutaneous tissue was closed with 3-0 Vicryl and the skin was closed with shaan and Dermabond skin closure. The capsule layers, muscle, and subcutaneous tissue were injected with a mixture of saline and bupivicaine. Dressings were applied. The patient was transferred to Recovery Room in stable condition. Gabino Conn MD Mar 06, 2017 09:23
--- NOTE | 2017-03-06 09:29 | RADRPT ---
EXAM DATE/TIME: 03/06/2017 07:42 [facility] COMPARISON: No previous studies available for comparison. INDICATIONS : Post-op total left hip arthroplasty. MEDICAL HISTORY : None. SURGICAL HISTORY : None. ENCOUNTER: Initial ACUITY: 1 day PAIN SCORE: Non-responsive. LOCATION: Left Hip. FINDINGS: A left hip replacement has been performed. The prosthesis appears to be in good position. CONCLUSION: Left hip replacement with prosthesis in good position. José Manuel Granado MD on March 06, 2017 at 9:21 Board Certified Radiologist. This report was verified electronically.
[2017-03-06] MEDS ORDERED: SODIUM CHLORIDE 0.9% FLUSH 5 ML FLUSH IVF PRN (09:30)
[2017-03-06] MEDS ORDERED: NALOXONE HCL 0.4 MG/ML AMP IV PUSH PRN (09:30)
[2017-03-06] MEDS ORDERED: ONDANSETRON HCL 4 MG/2 ML VIAL IVP PRN (09:30)
[2017-03-06] MEDS ORDERED: Post-op Orders (for Pharmacy) MISC XX ONE (09:46)
[2017-03-06] MEDS: LACTATED RINGER'S 1000 ML INJ 1,000 ML IV SCH ×2 (10:00→20:22)
[2017-03-06] MEDS ORDERED: DO NOT ADM ANY ANTICOAGULANT DRUGS PRN (10:30)
--- NOTE | 2017-03-06 10:37 | RADRPT ---
EXAM DATE/TIME: 03/06/2017 10:01 [facility] COMPARISON: No previous studies available for comparison. INDICATIONS : Post-op left hip. MEDICAL HISTORY : None. SURGICAL HISTORY : Fusion C4,C5 and C5,C6 with screws and plate placement ENCOUNTER: Initial ACUITY: 1 day PAIN SCORE: 0/10 LOCATION: Left Hip. FINDINGS: Patient is status post placement of a left hip prosthesis. There is good position and alignment of th e prosthesis and bony structures. The bony structures are grossly intact. Postsurgical changes are pr esent. CONCLUSION: Good position and alignment on this postoperative examination. Rupert Brown MD on March 06, 2017 at 10:35 Board Certified Radiologist. This report was verified electronically.
[2017-03-06] MEDS ORDERED: TRANEXAMIC ACID INJ 1,000 MG in SODIUM CHLORIDE 0.9% INJ 100 ML IV ONE (11:00)
[2017-03-06] MEDS: KETOROLAC TROMETHAMINE 30 MG/ML (IVP) VIAL IV PUSH SCH ×2 (11:35→22:08)
[2017-03-06] MEDS: MORPHINE SULFATE 4 MG/ML INJ IV PUSH PRN ×3 (12:10→23:23)
[2017-03-06 13:00] VITALS: BP 117/76; PULSE 68; RESP 18; TEMP 97.6; O2SAT 97
[2017-03-06] MEDS: ceFAZolin 2 GM PREMIX 50 ML IV SCH ×2 (13:56→20:23)
[2017-03-06] MEDS: ACETAMINOPHEN/HYDROcodone 325 MG/10 MG TAB PO PRN (15:11)
[2017-03-06 16:00] VITALS: BP 119/59; PULSE 70; RESP 18; TEMP 96.8; O2SAT 96
[2017-03-06 19:00] VITALS: BP 94/51; PULSE 75; RESP 17; TEMP 99; O2SAT 98
[2017-03-06 19:50] VITALS: O2SAT 96
[2017-03-06] MEDS: SODIUM CHLORIDE 0.9% FLUSH 5 ML FLUSH IVF SCH (20:25)
[2017-03-06] MEDS: VANCOMYCIN INJ 1,000 MG in SODIUM CHLOR 0.9% 250 ML INJ 250 ML IV SCH (20:26)
[2017-03-06] MEDS ORDERED: PRAVASTATIN SOD 20 MG TAB PO SCH (21:00)
[2017-03-06] MEDS: ACETAMINOPHEN/HYDROcodone 325 MG/7.5 MG TAB PO PRN (22:08)
[2017-03-07 00:01] VITALS: BP 103/43; PULSE 68; RESP 16; TEMP 96.7; O2SAT 94
[2017-03-07] MEDS: ceFAZolin 2 GM PREMIX 50 ML IV SCH (01:05)
[2017-03-07 04:00] VITALS: BP 99/51; PULSE 86; RESP 17; TEMP 98.5; O2SAT 95
[2017-03-07] MEDS: ACETAMINOPHEN/HYDROcodone 325 MG/7.5 MG TAB PO PRN (05:15)
[2017-03-07 06:14] LABS: HEMATOCRIT 30.2 % (35.0-46.0); HEMOGLOBIN 10.2 GM/DL (11.6-15.3)
--- NOTE | 2017-03-07 07:10 | PD.ORT.PN ---
Subjective Subjective Remarks Resting comfortably in doing well status post left total hip arthroplasty Objective Vitals Vital Signs Date Time Temp Pulse Resp B/P (MAP) Pulse Ox O2 Delivery O2 Flow Rate FiO2 03/07/17 06:23 18 03/07/17 04:00 98.5 86 17 99/51 (67) 95 03/07/17 01:18 Room Air 03/07/17 00:01 96.7 68 16 103/43 (63) 94 03/06/17 23:30 18 03/06/17 23:09 17 03/06/17 19:50 96 21 03/06/17 19:00 99.0 75 17 94/51 (65) 98 03/06/17 16:00 96.8 70 18 119/59 (79) 96 03/06/17 13:00 97.6 68 18 117/76 (90) 97 03/06/17 12:35 73 14 94/55 (68) 97 Room Air 03/06/17 12:15 68 14 110/56 (74) 97 Room Air 03/06/17 12:00 68 14 103/53 (70) 94 Room Air 03/06/17 11:45 68 14 107/53 (71) 96 Room Air 03/06/17 11:30 72 14 114/55 (74) 98 Room Air 03/06/17 11:15 67 14 118/58 (78) 96 Room Air 03/06/17 11:00 70 14 123/58 (79) 96 Room Air 03/06/17 10:45 72 14 125/60 (81) 97 Nasal Cannula 2 03/06/17 10:30 74 14 131/60 (83) 99 Nasal Cannula 2 03/06/17 10:15 76 14 101/53 (69) 99 Nasal Cannula 4 03/06/17 10:00 72 14 105/53 (70) 99 Nasal Cannula 4 03/06/17 09:46 98.4 73 14 124/71 (88) 98 Simple Mask 8 I/O 03/06/17 03/06/17 03/06/17 03/07/17 03/07/17 03/07/17 07:00 15:00 23:00 07:00 15:00 23:00 Intake Total 1540 ml 1491 ml 530 ml Output Total 70 ml 140 ml 100 ml Balance 1470 ml 1351 ml 430 ml Intake Oral 240 ml 480 ml 480 ml IV Total 300 ml 1011 ml 50 ml Other 1000 ml Output Drainage Total 50 ml 140 ml 100 ml Estimated Blood Loss 20 ml # Voids 2 2 3 # Bowel Movements 0 0 0 Result Diagram: 03/07/17 0549 Imaging Last 24 hours Impressions Hip and Pelvis X-Ray 03/06/17 0919 Signed Impressions: Service Date/Time: March 10:01 - CONCLUSION: Good position and alignment on this postoperative examination. Rupert Brown MD Objective Remarks Left lower extremity: Compartments soft clean dry dressings intact with drain in place. Mild drainage. Intact sensation distally with active dorsal flexion plantar flexion of foot with soft calf compartments Assessment & Plan Assessment and Plan Left total hip arthroplasty anterior approach POD 1 Weightbearing as tolerated with physical therapy twice a day Change dressing and DC drain after this will therapy this morning Lovenox then convert to Xarelto once home Incentive spirometry Discharged home today after physical therapy this afternoon with son Follow-up Dr. Conn or [place] in 2 weeks Driss Griffin Jr. Mar 07, 2017 07:10
[2017-03-07 08:00] VITALS: BP 139/64; PULSE 78; RESP 17; TEMP 99.1; O2SAT 98
[2017-03-07] MEDS: VANCOMYCIN INJ 1,000 MG in SODIUM CHLOR 0.9% 250 ML INJ 250 ML IV SCH (08:18)
[2017-03-07] MEDS: ACETAMINOPHEN/HYDROcodone 325 MG/10 MG TAB PO PRN ×2 (08:20→15:17)
[2017-03-07] MEDS: SODIUM CHLORIDE 0.9% FLUSH 5 ML FLUSH IVF SCH (08:31)
[2017-03-07] MEDS ORDERED: CALCIUM/VITAMIN D 250 MG/125 U TAB PO SCH (09:00)
[2017-03-07] MEDS ORDERED: MAGNESIUM OXIDE 400 MG TAB PO SCH (09:00)
[2017-03-07] MEDS ORDERED: ENOXAPARIN SODIUM 40 MG/0.4 ML SYRINGE SQ SCH (09:00)
[2017-03-07] MEDS ORDERED: ATENOLOL 25 MG TAB PO SCH (09:00)
[2017-03-07] MEDS ORDERED: LISINOPRIL 20 MG TAB PO SCH (09:00)
[2017-03-07 09:45] VITALS: O2SAT 97
[2017-03-07] MEDS: LACTATED RINGER'S 1000 ML INJ 1,000 ML IV SCH (10:14)
[2017-03-07] MEDS: KETOROLAC TROMETHAMINE 30 MG/ML (IVP) VIAL IV PUSH SCH (11:34)
[2017-03-07 12:00] VITALS: BP 104/54; PULSE 80; RESP 18; TEMP 99.2; O2SAT 98
[2017-03-07 12:35] VITALS: RESP 16
[2017-03-07] MEDS ORDERED: DOCUSATE SODIUM 100 MG CAP PO SCH (21:00)
== END 2017-03-07 16:17 | disposition home health service (06) | DRG 470 ==
LOC: HSDI 05:12 → N06A 13:05
PROVIDERS: ADMIT Orthopaedic Surgery Orthopaedic Trauma; ATTEND Orthopaedic Surgery Orthopaedic Trauma
PROC: 0SRB02A Replacement of Left Hip Joint with Metal on Polyethylene Synthetic Substitute, Uncemented, Open Approach (ICD-10-PCS; principal; 2017-03-06 07:17)
DX: M16.12 Unilateral primary osteoarthritis, left hip (principal)
CPT/HCPCS: 73501; 73502; 76000; 85014; 85018; 86850; 86900; 86901; 87086; C9290; J0690; J1170; J1580; J1650; J1885; J2270; J2405; J3370; J7050; J7120